=== PATIENT | male | born 1985 | race Caucasian/White ===

== ENCOUNTER 2017-06-26 20:30 | Emergency (ER) | payer SELFPAY ==
[~2017-06-26 20:30] MED LIST: AZIT250T43 PO
[2017-06-26 20:32] VITALS: BP 170/102; PULSE 112; RESP 20; TEMP 101.5; O2SAT 95
[2017-06-26 20:45] VITALS: BP 170/89; PULSE 113; RESP 18; O2SAT 96
--- NOTE | 2017-06-26 20:56 | PD ---
HPI Chief Complaint: Fever Time Seen by Provider: 20:43 Travel History International Travel<30 days: No Contact w/Intl Traveler<30days: No Traveled to known affect area: No History of Present Illness HPI 32-year-old male complains of fever, headache, nausea vomiting, abdominal pain, diaphoresis. Patient states that the symptoms started 5 days ago. Patient states that headache is mild aching headache intermittent headache. Patient denies any visual change. Patient denies any neck pain. Patient states that he has mild intermittent productive cough. Patient states that he has intermittent mild abdominal cramping. Patient states that he has intermittent nausea with occasional vomiting. Patient denies any dysuria or frequency. Patient denies any diarrhea. Patient denies any recent sick contact. Patient denies any recent travel. PFSH Past Medical History Diminished Hearing: No PNEUMOCCOCAL Vaccine (Year): 2009 Past Surgical History Abdominal Surgery: Yes (HERNIA REPAIR) Genitourinary Surgery: Yes (CIRCUMCISION @ 13 YEARS OLD) Other Surgery: Yes (HERNIA REPAIR) Social History Alcohol Use: No ("MONTHLY") Tobacco Use: No ("QUIT 10 DAYS AGO") Substance Use: No Allergies-Medications (Allergen,Severity, Reaction): Coded Allergies: No Known Allergies (Verified , 06/26/17) Reported Meds & Prescriptions Reported Meds & Active Scripts Active Zofran Odt (Ondansetron Odt) 4 Mg Tab 4 Mg SL Q6HR PRN Review of Systems General / Constitutional: Positive: Fever Eyes: No: Visual changes HENT: Positive: Headaches Cardiovascular: No: Chest Pain or Discomfort Respiratory: Positive: Cough, No: Shortness of Breath Gastrointestinal: Positive: Nausea, Vomiting, Abdominal Pain Genitourinary: No: Dysuria Musculoskeletal: No: Pain Skin: No Rash Neurologic: No: Weakness Psychiatric: No: Depression Endocrine: No: Polydipsia Hematologic/Lymphatic: No: Easy Bruising Physical Exam Narrative GENERAL: Well-nourished, well-developed patient. SKIN: Focused skin assessment warm/dry. HEAD: Normocephalic. EYES: No scleral icterus. No injection or drainage. NECK: Supple, trachea midline. No JVD or lymphadenopathy. CARDIOVASCULAR: Regular rate and rhythm without murmurs, gallops, or rubs. RESPIRATORY: Breath sounds equal bilaterally. No accessory muscle use. GASTROINTESTINAL: Abdomen soft, non-tender, nondistended. MUSCULOSKELETAL: No cyanosis, or edema. BACK: Nontender without obvious deformity. No CVA tenderness. Neurologic exam normal. Data Data Last Documented VS Vital Signs Date Time Temp Pulse Resp B/P (MAP) Pulse Ox O2 Delivery O2 Flow Rate FiO2 06/26/17 21:50 95 18 158/86 (110) 96 Room Air 06/26/17 20:32 101.5 Orders Orders Complete Blood Count With Diff (06/26/17 20:47) Comprehensive Metabolic Panel (06/26/17 20:47) Prothrombin Time / Inr (Pt) (06/26/17 20:47) Act Partial Throm Time (Ptt) (06/26/17 20:47) Blood Culture (06/26/17 20:47) Urinalysis - C+S If Indicated (06/26/17 20:47) Influenzae A/B Antigen (06/26/17 20:47) Chest, Single Ap (06/26/17 20:47) Iv Access Insert/Monitor (06/26/17 20:47) Ecg Monitoring (06/26/17 20:47) Oximetry (06/26/17 20:47) Sodium Chlor 0.9% 1000 Ml Inj (Ns 1000 M (06/26/17 21:00) Ondansetron Inj (Zofran Inj) (06/26/17 21:00) Acetaminophen (Tylenol) (06/26/17 21:00) Lactic Acid Sepsis Protocol (06/26/17 20:49) Potassium Chloride (Kcl) (06/26/17 22:00) Potassium Chlor 20 Meq Premix (Kcl 20 Me (06/26/17 22:00) Labs Laboratory Tests Test 06/26/17 21:05 06/26/17 21:28 White Blood Count 7.5 TH/MM3 Red Blood Count 5.17 MIL/MM3 Hemoglobin 14.8 GM/DL Hematocrit 43.4 % Mean Corpuscular Volume 84.1 FL Mean Corpuscular Hemoglobin 28.7 PG Mean Corpuscular Hemoglobin Concent 34.1 % Red Cell Distribution Width 12.3 % Platelet Count 160 TH/MM3 Mean Platelet Volume 8.5 FL Neutrophils (%) (Auto) 77.2 % Lymphocytes (%) (Auto) 15.8 % Monocytes (%) (Auto) 5.6 % Eosinophils (%) (Auto) 1.0 % Basophils (%) (Auto) 0.4 % Neutrophils # (Auto) 5.8 TH/MM3 Lymphocytes # (Auto) 1.2 TH/MM3 Monocytes # (Auto) 0.4 TH/MM3 Eosinophils # (Auto) 0.1 TH/MM3 Basophils # (Auto) 0.0 TH/MM3 CBC Comment DIFF FINAL Differential Comment Prothrombin Time 10.8 SEC Prothromb Time International Ratio 1.0 RATIO Activated Partial Thromboplast Time 31.8 SEC Blood Urea Nitrogen 12 MG/DL Creatinine 1.00 MG/DL Random Glucose 122 MG/DL Total Protein 8.0 GM/DL Albumin 3.4 GM/DL Calcium Level 9.3 MG/DL Alkaline Phosphatase 63 U/L Aspartate Amino Transf (AST/SGOT) 22 U/L Alanine Aminotransferase (ALT/SGPT) 37 U/L Total Bilirubin 0.4 MG/DL Sodium Level 134 MEQ/L Potassium Level 2.8 MEQ/L Chloride Level 99 MEQ/L Carbon Dioxide Level 25.8 MEQ/L Anion Gap 9 MEQ/L Estimat Glomerular Filtration Rate 87 ML/MIN Lactic Acid Level 1.0 mmol/L Urine Color [place] Urine Turbidity CLEAR Urine pH 6.0 Urine Specific [place] GREATER THAN 1.035 Urine Protein 100 mg/dL Urine Glucose (UA) NEG mg/dL Urine Ketones TRACE mg/dL Urine Occult Blood MOD Urine Nitrite NEG Urine Bilirubin NEG Urine Leukocyte Esterase NEG Urine RBC 15-19 /hpf Urine WBC 0-2 /hpf Urine Squamous Epithelial Cells 0-5 /hpf Urine Amorphous Sediment FEW Urine Fine Granular Casts 0-2 /lpf Microscopic Urinalysis Comment CULT NOT INDICATED MDM Medical Decision Making Medical Screen Exam Complete: Yes Emergency Medical Condition: Yes Interpretation(s) 21:53 PM. CBC within normal limit. WBC 7.5. 77 neutrophil. Sodium 134. Potassium 2.8. Lactic acid 1.0. Influenza AB antigen negative. 22:31 PM. Chest x-ray shows no acute consolidation. Differential Diagnosis Differential diagnosis including viral syndrome, bronchitis, pneumonia, gastroenteritis, UTI, sepsis. Narrative Course 32-year-old male with fever, headache, cough, abdominal cramping, nausea vomiting. Normal saline solution 1 L IV bolus. Zofran 4 mg IV. Tylenol 650 mg by mouth. Diagnosis Primary Impression: Viral syndrome Additional Impression: Hypokalemia Patient Instructions: General Instructions Additional Instructions: Tylenol Advil for fever. Encourage by mouth fluid. Potassium as directed. Follow-up with personal physician. Return if persistent problem or worse. Med/Other Pt SpecificInfo: Prescription(s) given Scripts Potassium Chloride ER (Potassium Chloride ER) 10 Meq Cap 10 MEQ PO DAILY for Electrolyte Replacement, #7 CAP 0 Refills Prov: Dany Murcia MD 06/26/17 Ondansetron Odt (Zofran Odt) 4 Mg Tab 4 MG SL Q6HR Y for Nausea/Vomiting, #10 TAB 0 Refills Prov: Dany Murcia MD 06/26/17 Disposition: 01 DISCHARGE HOME Condition: Stable Dany Murcia MD Jun 26, 2017 20:56
[2017-06-26] MEDS ORDERED: ACETAMINOPHEN 325 MG TAB PO ONE (21:00)
[2017-06-26] MEDS ORDERED: SODIUM CHLOR 0.9% 1000 ML INJ 1,000 ML IV ONE (21:00)
[2017-06-26] MEDS ORDERED: ONDANSETRON HCL 4 MG/2 ML VIAL IV PUSH ONE (21:00)
[2017-06-26 21:22] LABS: AUTOMATED NEUTROPHIL # 5.8 TH/MM3 (1.8-7.7); BASOPHIL % 0.4 % (0.0-2.0); EOSINOPHIL # 0.1 TH/MM3 (0-0.4); HEMATOCRIT 43.4 % (39.0-51.0); LYMPH % 15.8 % (9.0-44.0); LYMPHOCYTE # 1.2 TH/MM3 (1.0-4.8); MEAN CELL VOLUME 84.1 FL (80.0-100.0); MEAN CORPUSCULAR HEMOGLOBIN 28.7 PG (27.0-34.0); MEAN CORPUSCULAR HGB CONC 34.1 % (32.0-36.0); MONO % 5.6 % (0.0-8.0); NEUT % 77.2 % (16.0-70.0); PLATELET COUNT 160 TH/MM3 (150-450); RED BLOOD COUNT 5.17 MIL/MM3 (4.50-5.90); RED CELL DISTRIBUTION WIDTH 12.3 % (11.6-17.2); WHITE BLOOD COUNT 7.5 TH/MM3 (4.0-11.0)
[2017-06-26 21:34] LABS: APTT (PATIENT) 31.8 SEC (24.3-30.1); PROTHROMBIN TIME - PATIENT 10.8 SEC (9.8-11.6)
[2017-06-26 21:37] LABS: HEMO FLAGS DIFF FINAL
[2017-06-26 21:50] VITALS: BP 158/86; PULSE 95; RESP 18; O2SAT 96
[2017-06-26 21:51] LABS: ALKALINE PHOSPHATASE 63 U/L (45-117); ALT (GPT) 37 U/L (12-78); ANION GAP 9 MEQ/L (5-15); AST (GOT) 22 U/L (15-37); BICARBONATE 25.8 MEQ/L (21.0-32.0); BLOOD UREA NITROGEN 12 MG/DL (7-18); CHLORIDE 99 MEQ/L (98-107); GLOMERULAR FILTRATION RATE 87 ML/MIN (>89); SODIUM (NA) 134 MEQ/L (136-145); TOTAL BILIRUBIN ADULT 0.4 MG/DL (0.2-1.0)
[2017-06-26 21:52] LABS: POTASSIUM 2.8 MEQ/L (3.5-5.1)
[2017-06-26 21:54] LABS: BLOOD, URINE MOD (NEG); GLUCOSE,URINE NEG (NEG); KETONE, URINE TRACE mg/dL (NEG); NITRITE,URINE NEG (NEG)
[2017-06-26] MEDS ORDERED: POTASSIUM CHLORIDE 20 MEQ CONTROLLED RELEASE TAB PO ONE (22:00)
[2017-06-26] MEDS ORDERED: POTASSIUM CHLOR 20 MEQ PREMIX 100 ML IV ONE (22:00)
[2017-06-26 22:10] LABS: URINE COLOR AMBER (YELLW/STRAW)
[2017-06-26 22:11] LABS: RBC, URINE 15-19 /hpf (0-3); SQUAMOUS EPITHELIAL CELL URINE 0-5 /hpf (0-5)
[2017-06-26 22:13] LABS: COMMENT (UR) CULT NOT INDICATED; CULTURE IF INDICATED CULT NOT INDICATED; WBC, URINE 0-2 /hpf (0-5)
--- NOTE | 2017-06-26 22:24 | RADRPT ---
EXAM DATE/TIME: 06/26/2017 21:48 [facility] COMPARISON: No previous studies available for comparison. INDICATIONS : Fever. Weakness. MEDICAL HISTORY : None. SURGICAL HISTORY : None. ENCOUNTER: Initial ACUITY: 2 days PAIN SCORE: 6/10 LOCATION: Bilateral chest FINDINGS: A single view of the chest demonstrates the lungs to be symmetrically aerated without evidence of mas s, infiltrate or effusion. The cardiomediastinal contours are unremarkable. Osseous structures are intact. CONCLUSION: No acute disease. Luis A Reese MD on June 26, 2017 at 22:22 Board Certified Radiologist. This report was verified electronically.
[2017-06-26] MEDS ORDERED: ZOFR4TAB3 SL (22:32)
[2017-06-26] MEDS ORDERED: POTA10CA PO (22:35)
[2017-06-26 22:45] VITALS: BP 150/85; PULSE 75; RESP 18; TEMP 100.2; O2SAT 96
[2017-06-26 23:45] VITALS: BP 159/84; PULSE 82; RESP 18; O2SAT 96
[2017-06-27 00:25] VITALS: BP 164/98; PULSE 89; RESP 18; O2SAT 97
== END 2017-06-27 00:37 | disposition home or self-care (01) ==
LOC: PHED 20:30
DX: B34.9 Viral infection, unspecified (principal); E87.6 Hypokalemia; Z87.891 Personal history of nicotine dependence; R11.2 Nausea with vomiting, unspecified; R10.9 Unspecified abdominal pain
CPT/HCPCS: 71010; 80053; 81001; 83605; 85025; 85610; 85730; 87040; 87804; 96365; 96366; 96375; 99285; J2405; J3480; J7030